=== PATIENT | female | born 1980 | race Native Hawaiian/Other Pacific Islander ===

== ENCOUNTER 2017-09-07 19:13 | Emergency (ER) | payer OTHER ==
[~2017-09-07] VITALS: Ht 152.4 cm; Wt 51.7 kg
[2017-09-07 20:31] LABS: PLATELET COUNT 201 K/uL (152-353)
== END 2017-09-07 21:25 | disposition home or self-care (01) ==
LOC: ED 19:13
DX: B34.9 Viral infection, unspecified (principal)
CPT/HCPCS: 36415; 85027; 87081; 87804; 87880; 99283